=== PATIENT | female | born 1970 | race Caucasian/White ===

== ENCOUNTER 2016-10-26 10:55 | Day surgery (SDC) | payer OTHER ==
[~2016-10-26] VITALS: Ht 167.6 cm; Wt 75.0 kg
[~2016-10-26 10:55] MED LIST: DEXL30CA3 PO; PANT40TA3 PO; POLY17PO6 PO; RANI300T4 PO; Sodium Chloride LOK Flush 10 mL Syringe IV PRN; fentaNYL-PF 50 mCg/mL 2 mL Inj IVPUSH PRN
[2016-10-26] MEDS ORDERED: 0.9% Sodium Chloride 1,000 ML ONE (11:07)
[2016-10-26 11:21] VITALS: BP 107/68; PULSE 72; O2SAT 98
[2016-10-26 11:56] VITALS: BP 92/61; PULSE 76; RESP 14; O2SAT 100
[2016-10-26 12:10] VITALS: BP 98/63; PULSE 83; RESP 14; O2SAT 98
[2016-10-26 12:20] VITALS: BP 99/63; PULSE 66; RESP 15; O2SAT 100
[2016-10-26 12:30] VITALS: BP 93/61; PULSE 61; RESP 16; O2SAT 100
--- NOTE | 2016-10-26 14:05 | ENDO ---
[address] [address] ENDOSCOPY PROCEDURE PATIENT: YONG BUSTAMANTE : 1970 MR#: [id number] ADMIT: 10/26/2016 JOB ID: [id number] DATE OF SERVICE: 10/26/2016 TYPE OF OPERATION: 1. Esophagogastroduodenoscopy with biopsy. 2. Colonoscopy. PREOPERATIVE DIAGNOSES: 1. Chan esophagus. 2. Constipation. POSTOPERATIVE DIAGNOSES: 1. Mild nonerosive gastritis. 2. Normal Z-line, status post biopsy. 3. Normal colonoscopy. 4. External hemorrhoids, small. ANESTHESIA: Fentanyl 175 mcg and Versed 10 mg IV administered. COMPLICATIONS: None. BLOOD LOSS: Minimal. DESCRIPTION OF PROCEDURE: After risks and benefits explained to the patient, informed consent was obtained. After anesthesia administered, upper endoscope was then inserted in the mouth, intubating into the esophagus, stomach, second portion of duodenum. Mucosa carefully examined. After procedure was done, the scope withdrawn and procedure terminated. A colonoscope was then inserted per rectum to cecum. Mucosa carefully examined. Prep of the patient was excellent. After procedure was done, the scope was withdrawn and the procedure terminated. FINDINGS: Upon inspection of the esophagus, the esophagus was normal without masses, ulcers, or lesions. Z-line was regular and located at 40 cm from incisors. Upon entering the stomach, there was mild nonerosive gastritis that was seen throughout the entire stomach. No masses, ulcers, or lesions were seen. Retroflexion was normal. Duodenal bulb, first and second portions were normal. Biopsies taken of the duodenum, antrum, body and distal esophagus. Upon inspection of the anus, there were small external hemorrhoids that were seen. Throughout the entire examination, there were no masses, polyps, or lesions. Retroflexion was normal. IMPRESSIONS: 1. External hemorrhoids. 2. Normal colonoscopy. 3. Mild nonerosive gastritis, status post biopsy. 4. Regular Z-line. RECOMMENDATION: Await pathology results. Follow up in GI clinic as needed. Stool softener as needed.
--- NOTE | 2016-10-29 15:54 | PATH ---
SURGICAL PATHOLOGY Attending Physician:Rakesh Tillman MD CASE STATUS: Signed Out PATIENT NAME: YONG BUSTAMANTE PID: [id number] : 1970 DATE COLLECTED:10/26/2016 21:17 SPECIMEN: 1: Esophagus, Biopsy 2: Stomach, Antrum, Biopsy 3: Gastric, Biopsy 4: Duodenum, Biopsy CLINICAL HISTORY: 1). DISTAL ESOPHAGUS BIOPSY 2). ANTRUM BIOPSY 3). GASTRIC BODY BIOPSY 4). DUODENUM BIOPSY FINAL DIAGNOSIS: 1. Distal Esophagus, Biopsy: Squamocolumnar junctional mucosa with specialized intestinal metaplasia consistent with Chan's esophagus. Negative for dysplasia and malignancy. 2. Stomach, Antrum, Biopsy: Antral mucosa with no diagnostic abnormality. Negative for Helicobacter organisms. Negative for intestinal metaplasia. Negative for dysplasia and malignancy. 3. Stomach, Body, Biopsy: Body-type mucosa with no diagnostic abnormality. Negative for Helicobacter organisms. Negative for intestinal metaplasia. Negative for dysplasia and malignancy. 4. Duodenum, Biopsy: Duodenal mucosa with no diagnostic abnormality. Negative for active inflammation, features of sprue, dysplasia and malignancy. ICD10: K22.70 GROSS DESCRIPTION: The specimen is received in four formalin filled containers labeled with the patient's name. 1). The specimen is sublabeled "distal esophagus" and consists of 3 portions of tissue which aggregate to 0.3 x 0.3 x 0.2 CM. The specimen is entirely submitted in cassette 1A. 2). The specimen is sublabeled "antrum" and consists of a 0.4 x 0.3 x 0.2 CM portion of tissue which is entirely submitted in cassette 2A. 3). The specimen is sublabeled "gastric body" and consists of 2 portions of tissue which aggregate to 0.4 x 0.3 x 0.2 CM. The specimen is entirely submitted in cassette 3A. 4). The specimen is sublabeled "duodenum" and consists of 2 portions of tissue which aggregate to 0.4 x 0.3 x 0.2 CM. The specimen is entirely submitted in cassette 4A. 10/26/2016 [facility] ICD-9 CODES: CPT CODES: 1: 28934 2: 44063 3: 27399 4: 93394 Electronically Signed Out Chen Nelson MD [facility] [address] [place] [address] Division, [place] [address] Technical component performed at [facility], [address], [place], [address]
== END 2016-10-26 23:59 | disposition home or self-care (01) ==
LOC: END 10:55
PROVIDERS: ATTEND Internal Medicine Gastroenterology
DX: K22.70 Barrett's esophagus without dysplasia (principal); K21.9 Gastro-esophageal reflux disease without esophagitis; K64.4 Residual hemorrhoidal skin tags; K59.00 Constipation, unspecified
CPT/HCPCS: 43239; 45378; 88305; G0500; J2250; J3010; J7030